=== PATIENT | male | born 1940 | race Caucasian/White ===

== ENCOUNTER → 2023-04-02 | Outpatient (CLI) | payer BC ==
[2023-04-01 15:32] LABS: ALBUMIN 2.7 G/DL (3.4-5.0); ANION GAP 5 (8-16); BLOOD UREA NITROGEN 23 MG/DL (7-18); BUN/CREATININE RATIO 14.9 (10.0-20.0); CALCIUM 9.8 MG/DL (8.5-10.1); CHLORIDE 99 MMOL/L (99-107); CREATININE 1.54 MG/DL (0.60-1.10); GLUCOSE 102 MG/DL (70-104); SODIUM 132 MMOL/L (135-145); TOTAL CARBON DIOXIDE 27.9 MMOL/L (24-32); eGFR 44 ML/MIN
[~2023-04-02] MED LIST: iohexol 300mg/ml 100ml inj. ONE
== END | disposition home or self-care (01) ==
LOC: RAD 04-01 14:31
PROVIDERS: ATTEND Physician Assistant
DX: K85.90 Acute pancreatitis without necrosis or infection, unspecified (principal); R10.84 Generalized abdominal pain; R93.89 Abnormal findings on diagnostic imaging of other specified body structures; N28.89 Other specified disorders of kidney and ureter; I70.0 Atherosclerosis of aorta; J98.4 Other disorders of lung; Z90.49 Acquired absence of other specified parts of digestive tract
CPT/HCPCS: 36415; 74177; 80048; J3490; Q9967

== ENCOUNTER 2023-04-06 12:24 | Inpatient (IN) | payer BC ==
[~2023-04-06] VITALS: Ht 177.8 cm; Wt 77.0 kg
[2023-04-06 14:48] LABS: ALANINE AMINOTRANSFERASE 48 U/L (12-78); ALBUMIN 3.1 G/DL (3.4-5.0); ALBUMIN/GLOBULIN RATIO 0.8 (1.1-1.5); ALKALINE PHOSPHATASE 132 IU/L (46-116); ANION GAP 8 (8-16); ASPARTATE AMINO TRANSFERASE 35 U/L (10-37); BILIRUBIN,TOTAL 0.4 MG/DL (0.1-1.0); BLOOD UREA NITROGEN 39 MG/DL (7-18); BUN/CREATININE RATIO 19.6 (10.0-20.0); CALCIUM 9.9 MG/DL (8.5-10.1); CHLORIDE 100 MMOL/L (99-107); CREATININE 1.99 MG/DL (0.60-1.10); GLUCOSE 124 MG/DL (70-104); POTASSIUM 4.3 MMOL/L (3.5-5.1); SODIUM 135 MMOL/L (135-145); TOTAL CARBON DIOXIDE 27.4 MMOL/L (24-32); TOTAL PROTEIN 7.2 G/DL (6.4-8.2); eCRCL 31 ML/MIN; eGFR 32 ML/MIN
[2023-04-06 14:58] LABS: BASOPHILS % (AUTO) 0.4 % (0-1); EOSINOPHILS # (AUTO) 0.3 X10'3 (0-0.9); EOSINOPHILS % (AUTO) 3.2 % (0-6); HEMATOCRIT 41.5 % (42.0-52.0); HEMOGLOBIN 13.7 g/dl (14.0-17.9); LYMPHOCYTES # (AUTO) 1.1 X10'3 (1.1-4.8); MEAN CORPUSCULAR HEMOGLOBIN 29.9 PG (27.0-31.0); MEAN CORPUSCULAR HGB CONC 33.1 g/dL (33.0-36.5); MEAN CORPUSCULAR VOLUME 90.2 FL (78-98); MEAN PLATELET VOLUME 9.3 FL (7.4-10.4); MONOCYTES # (AUTO) 0.6 X10'3 (0-0.9); MONOCYTES % (AUTO) 7.7 % (2-12); NEUTROPHILS # (AUTO) 5.9 X10'3 (1.8-7.7); NEUTROPHILS % (AUTO) 74.7 % (42-75); PLATELET COUNT 357 X10'3 (140-440); RED CELL DISTRIBUTION WIDTH 14.1 % (11.5-14.5); WHITE BLOOD COUNT 7.9 X10'3 (4.5-11.0)
[2023-04-06] MEDS ORDERED: iohexol 300mg/ml 100ml inj. ONE (15:49)
[2023-04-06 18:40] LABS: BILIRUBIN,URINE NEGATIVE (Neg); CLARITY,URINE CLEAR (Clear); COLOR,URINE YELLOW (Yellow); GLUCOSE, URINE NEGATIVE (Neg); KETONES,URINE NEGATIVE (Neg); LEUKOCYTE ESTERASE ,URINE NEGATIVE (Neg); NITRITES, URINE NEGATIVE (Neg); OCCULT BLOOD,URINE NEGATIVE (Neg); PH,URINE 5.5 (4.8-8.0); PROTEIN,URINE NEGATIVE (Neg); UROBILINOGEN,URINE 0.2 E.U/dL (0.2-1.0)
[2023-04-06 19:05] LABS: UA COLLECTION TYPE NON-SPECIFIED
[2023-04-06] MEDS ORDERED: normal saline 1000ml 1,000 ML IV ONE (21:40)
[2023-04-06] MEDS ORDERED: piperacillin/tazo 3.375gm/50ml 50 ML IV SCH (21:43)
[2023-04-06] MEDS ORDERED: VANCOmycin 1250MG/NS 250ml Bag 250 ML IV ONE (21:45)
[2023-04-06] MEDS ORDERED: FINA5TAB11 PO (22:57)
[2023-04-06] MEDS ORDERED: FENO134C21 PO (22:57)
[2023-04-06] MEDS ORDERED: ESOM40CA54 PO (22:57)
[2023-04-06] MEDS ORDERED: ALBU10.7 INH (22:57)
[2023-04-06] MEDS ORDERED: LEVO150T8 PO (22:57)
[2023-04-06] MEDS ORDERED: LOSA100T58 PO (22:57)
[2023-04-07] MEDS ORDERED: diphenhydrAMINE 50 mg/ml inj IV PRN (03:15)
[2023-04-07] MEDS ORDERED: HYDROcodone/acetaminophen 5mg/325mg tablet PO PRN (03:15)
[2023-04-07] MEDS ORDERED: acetaminophen 650mg rectal suppository RC PRN (03:15)
[2023-04-07] MEDS ORDERED: diphenhydrAMINE 25mg capsule PO PRN (03:15)
[2023-04-07] MEDS ORDERED: bisacodyl 10mg suppository rectal RC PRN (03:15)
[2023-04-07] MEDS ORDERED: mag hydrox/Alum hydrox/simeth 30ml oral suspension PO PRN (03:15)
[2023-04-07] MEDS ORDERED: ondansetron 4mg rapidly disintigrating tab PO PRN (03:15)
[2023-04-07] MEDS ORDERED: ondansetron/PF 4mg/2ml inj IV PRN (03:15)
[2023-04-07] MEDS ORDERED: magnesium hydroxide 30ml (MOM) UD suspension PO PRN (03:15)
[2023-04-07] MEDS ORDERED: acetaminophen 325mg tablet PO PRN ×2 (03:15)
[2023-04-07] MEDS ORDERED: morphine 2 MG/ML inj. syringe IV PRN ×2 (03:15)
[2023-04-07] MEDS ORDERED: temazepam 15mg capsule PO PRN (03:21)
[2023-04-07] MEDS: normal saline 1000ml 1,000 ML IV SCH ×3 (03:52→23:15)
[2023-04-07] MEDS: HYDROcodone/acetaminophen 10/325mg tab PO PRN (05:54)
[2023-04-07] MEDS ORDERED: vancomycin/NS 1 GM ADD-VANTAGE 250 ML IV SCH (08:00)
[2023-04-07 08:11] LABS: APTT 34 SECONDS (22-32); INR 1.1 INR; PROTHROMBIN TIME 11.4 SECONDS (9.0-12.0)
[2023-04-07] MEDS: heparin, porcine 5000 units/ml vial SQ SCH ×2 (08:19→20:00)
[2023-04-07] MEDS: pantoprazole 40MG/NS 100ML BAG 100 ML IV SCH (08:19)
[2023-04-07] MEDS: piperacillin/tazo 3.375gm/50ml 50 ML IV SCH ×2 (08:19→16:00)
[2023-04-07] MEDS: docusate sod 100mg capsule PO SCH ×2 (08:20→20:00)
[2023-04-07 08:57] LABS: MAGNESIUM 2.1 MG/DL (1.5-2.4); PHOSPHORUS 2.9 MG/DL (2.3-4.5)
[2023-04-07] MEDS: levoTHYROXINE 75mcg tablet PO SCH (10:00)
[2023-04-07] MEDS: losartan 50mg tablet PO SCH (10:00)
[2023-04-07] MEDS: fenofibrate 145mg tablet PO SCH (10:00)
[2023-04-07 10:46] LABS: HEMOGLOBIN A1C 5.3 % (4.5-6.2)
--- NOTE | 2023-04-07 11:14 | NUR ---
DUC FROM [facility] CALLED PROCEDURE CANT BE DONE UNTIL 1400 TODAY, DUE TO PATIENT RECEIVING HEPARIN THIS AM. INFORMED US PROCEDURE WILL BE DONE TOMORROW MORNING.
--- NOTE | 2023-04-07 11:32 | NUR ---
DR. WHITT CALLED. PROCEDURE IN IR WILL BE DONE AT 1430 TODAY.
[2023-04-07] MEDS ORDERED: ALBU18HF2 INH (12:53)
[2023-04-07 13:25] LABS: BASOPHILS % (AUTO) 0.6 % (0-1); EOSINOPHILS # (AUTO) 0.2 X10'3 (0-0.9); EOSINOPHILS % (AUTO) 3.3 % (0-6); HEMATOCRIT 36.6 % (42.0-52.0); HEMOGLOBIN 12.2 g/dl (14.0-17.9); LYMPHOCYTES % (AUTO) 14.6 % (21-51); MEAN CORPUSCULAR HGB CONC 33.4 g/dL (33.0-36.5); MEAN CORPUSCULAR VOLUME 89.8 FL (78-98); MEAN PLATELET VOLUME 9.2 FL (7.4-10.4); MONOCYTES # (AUTO) 0.6 X10'3 (0-0.9); MONOCYTES % (AUTO) 7.9 % (2-12); NEUTROPHILS # (AUTO) 5.2 X10'3 (1.8-7.7); NEUTROPHILS % (AUTO) 73.6 % (42-75); PLATELET COUNT 254 X10'3 (140-440); RED BLOOD COUNT 4.07 X10'6 (4.70-6.10); RED CELL DISTRIBUTION WIDTH 13.9 % (11.5-14.5)
[2023-04-07 13:36] LABS: ALANINE AMINOTRANSFERASE 38 U/L (12-78); ALBUMIN 2.5 G/DL (3.4-5.0); ALBUMIN/GLOBULIN RATIO 0.8 (1.1-1.5); ALKALINE PHOSPHATASE 104 IU/L (46-116); AMYLASE 89 U/L (25-115); ANION GAP 8 (8-16); ASPARTATE AMINO TRANSFERASE 26 U/L (10-37); BILIRUBIN,TOTAL 0.6 MG/DL (0.1-1.0); BLOOD UREA NITROGEN 31 MG/DL (7-18); BUN/CREATININE RATIO 19.9 (10.0-20.0); CHLORIDE 104 MMOL/L (99-107); CREATININE 1.56 MG/DL (0.60-1.10); GLUCOSE 94 MG/DL (70-104); POTASSIUM 4.2 MMOL/L (3.5-5.1); SODIUM 139 MMOL/L (135-145); TOTAL CARBON DIOXIDE 26.6 MMOL/L (24-32); TOTAL PROTEIN 5.8 G/DL (6.4-8.2); eCRCL 39 ML/MIN; eGFR 43 ML/MIN
[2023-04-07 15:11] LABS: APTT 34 SECONDS (22-32); INR 1.1 INR; PROTHROMBIN TIME 11.5 SECONDS (9.0-12.0)
[2023-04-07] MEDS ORDERED: LIDOcaine 1% 30ml preserv. free vial ONE (15:19)
--- NOTE | 2023-04-07 15:20 | NUR ---
ELOINA CALLED FROM IR. TOLD HER PT HAS BEEN NPO SINCE YESTERDAY.
[2023-04-07] MEDS ORDERED: midazolam 1 mg/ML 2ml injection ONE (15:22)
[2023-04-07] MEDS ORDERED: fentaNYL/PF 50MCG/1 ML 2ML syringe ONE (15:22)
[2023-04-07 15:50] VITALS: BP 151/78; PULSE 69; RESP 16; O2SAT 97
[2023-04-07 15:55] VITALS: BP 153/71; PULSE 58; RESP 16; O2SAT 97
[2023-04-07 16:00] VITALS: BP 160/68; PULSE 59; RESP 16; O2SAT 97
--- NOTE | 2023-04-07 16:10 | NUR ---
PT BACK FROM IR. DRAINED 60CC FROM ABSCESS. PT TOLERATED WELL.
[2023-04-07] MEDS ORDERED: VANCOMYCIN 750MG IV in NS 250 ML IV SCH (23:00)
--- NOTE | 2023-04-08 04:02 | NUR ---
repositioned pt for comfort, gave warm blankets, and in nad, still pend room
[2023-04-08 07:46] LABS: BASOPHILS % (AUTO) 0.6 % (0-1); EOSINOPHILS # (AUTO) 0.2 X10'3 (0-0.9); EOSINOPHILS % (AUTO) 3.6 % (0-6); HEMATOCRIT 33.2 % (42.0-52.0); HEMOGLOBIN 11.2 g/dl (14.0-17.9); LYMPHOCYTES % (AUTO) 19.4 % (21-51); MEAN CORPUSCULAR HEMOGLOBIN 30.4 PG (27.0-31.0); MEAN CORPUSCULAR HGB CONC 33.7 g/dL (33.0-36.5); MEAN CORPUSCULAR VOLUME 90.1 FL (78-98); MEAN PLATELET VOLUME 8.8 FL (7.4-10.4); MONOCYTES # (AUTO) 0.5 X10'3 (0-0.9); MONOCYTES % (AUTO) 9.5 % (2-12); NEUTROPHILS # (AUTO) 3.5 X10'3 (1.8-7.7); NEUTROPHILS % (AUTO) 66.9 % (42-75); PLATELET COUNT 224 X10'3 (140-440); RED BLOOD COUNT 3.69 X10'6 (4.70-6.10); RED CELL DISTRIBUTION WIDTH 14.3 % (11.5-14.5); WHITE BLOOD COUNT 5.2 X10'3 (4.5-11.0)
[2023-04-08] MEDS: docusate sod 100mg capsule PO SCH (08:00)
[2023-04-08] MEDS: heparin, porcine 5000 units/ml vial SQ SCH (08:00)
[2023-04-08] MEDS: pantoprazole 40MG/NS 100ML BAG 100 ML IV SCH (08:00)
[2023-04-08] MEDS ORDERED: non-formulary drug (Esomeprazole Magnesium 1 CAP) PO SCH (08:00)
[2023-04-08] MEDS ORDERED: finasteride 5mg tablet PO SCH (08:00)
[2023-04-08 08:05] LABS: ALANINE AMINOTRANSFERASE 32 U/L (12-78); ALBUMIN 2.4 G/DL (3.4-5.0); ALBUMIN/GLOBULIN RATIO 0.7 (1.1-1.5); ALKALINE PHOSPHATASE 98 IU/L (46-116); ANION GAP 7 (8-16); ASPARTATE AMINO TRANSFERASE 25 U/L (10-37); BILIRUBIN,TOTAL 0.7 MG/DL (0.1-1.0); BLOOD UREA NITROGEN 22 MG/DL (7-18); BUN/CREATININE RATIO 13.3 (10.0-20.0); CALCIUM 8.7 MG/DL (8.5-10.1); CHLORIDE 103 MMOL/L (99-107); CHOLESTEROL 102 MG/DL (0-200); CREATININE 1.65 MG/DL (0.60-1.10); GLUCOSE 97 MG/DL (70-104); HDL CHOLESTEROL 17 MG/DL (35-60); LDL CHOLESTEROL 59 MG/DL (50-100); POTASSIUM 4.2 MMOL/L (3.5-5.1); SODIUM 137 MMOL/L (135-145); TOTAL PROTEIN 5.7 G/DL (6.4-8.2); TRIGLYCERIDES 152 MG/DL (20-135); eCRCL 37 ML/MIN; eGFR 40 ML/MIN
--- NOTE | 2023-04-08 08:33 | NUR ---
Report given to LEEANN Osborne on Ortho floor. Patient transferred upstairs via hospital bed.
--- NOTE | 2023-04-08 08:40 | NUR ---
Patient in room ORTHO 4009. I have received report from LEEANN Osborne and had the opportunity to ask questions and assume patient care.
[2023-04-08 08:50] VITALS: BP 140/68; PULSE 66; RESP 15; TEMP 98.3; O2SAT 96
--- NOTE | 2023-04-08 09:00 | NUR ---
Notified pharmacy about missing zosyn and protonix. Pharmacy stated they would make it and bring them up. Will continue to look in [facility]
[2023-04-08] MEDS: normal saline 1000ml 1,000 ML IV SCH (09:15)
[2023-04-08 09:30] VITALS: RESP 16; O2SAT 94
[2023-04-08] MEDS: levoTHYROXINE 75mcg tablet PO SCH (10:13)
[2023-04-08] MEDS: fenofibrate 145mg tablet PO SCH (10:14)
[2023-04-08] MEDS: piperacillin/tazo 3.375gm/50ml 50 ML IV SCH ×2 (10:14)
[2023-04-08] MEDS: HYDROcodone/acetaminophen 10/325mg tab PO PRN ×2 (10:14→14:33)
[2023-04-08 10:30] VITALS: BP_SYST 140; PULSE 66
[2023-04-08] MEDS: losartan 50mg tablet PO SCH (10:30)
[2023-04-08] MEDS ORDERED: CIPR-259 PO (11:45)
[2023-04-08 12:46] LABS: THYROID STIMULATING HORMONE 1.52 ulU/ml (0.34-4.50)
[2023-04-08 13:57] VITALS: RESP 16; O2SAT 95
[2023-04-08 14:33] VITALS: RESP 17
--- NOTE | 2023-04-08 14:33 | NUR ---
protonix was not brought to the floor in time before patient is being discharged
--- NOTE | 2023-04-08 15:05 | NUR ---
pt given discharge packet and was able to ask questions and go over discharge. Pt was wheelchaired down to lobby with all of his belongings in no distress. Pt left in private vehicle with spouse.
--- NOTE | 2023-04-08 15:48 | NUR ---
physical assessment charting reviewed with Student RN
[2023-04-08] MEDS ORDERED: vancomycin/NS 1 GM ADD-VANTAGE 250 ML IV SCH (23:00)
[2023-04-11] MEDS ORDERED: VANCOMYCIN LEVEL IV ONE (22:30)
== END 2023-04-08 15:05 | disposition home or self-care (01) | DRG 438 ==
LOC: ER 12:25 → ED HOLD 04-07 03:20 → EDBEDREQ 04-08 03:35 → ORTHO 4S 04-08 08:50
PROVIDERS: ADMIT Family Medicine; ATTEND Internal Medicine
PROC: 0F9G3ZZ Drainage of Pancreas, Percutaneous Approach (ICD-10-PCS; principal; 2023-04-07)
DX: K85.90 Acute pancreatitis without necrosis or infection, unspecified (principal); N15.1 Renal and perinephric abscess; N17.0 Acute kidney failure with tubular necrosis; K86.3 Pseudocyst of pancreas; E88.09 Other disorders of plasma-protein metabolism, not elsewhere classified; E78.5 Hyperlipidemia, unspecified; K29.80 Duodenitis without bleeding; K86.1 Other chronic pancreatitis; N28.1 Cyst of kidney, acquired; N18.9 Chronic kidney disease, unspecified; I12.9 Hypertensive chronic kidney disease with stage 1 through stage 4 chronic kidney disease, or unspecified chronic kidney disease; Z91.013 Allergy to seafood
CPT/HCPCS: 10160; 36415; 80053; 80061; 81003; 82150; 83036; 83605; 83690; 83735; 83880; 84100; 84145; 84443; 85025; 85610; 85730; 87040; 87070; 99285; A4615; A6223; A6224; A6446; C9113; G0378; J1644; J2250; J2543; J3010; J3370; J3490; J7030; J7050; Q9967